=== PATIENT | male | born 1950 | race Native Hawaiian/Other Pacific Islander ===

== ENCOUNTER 2022-04-24 13:56 | Emergency (ER) | payer OTHER ==
[~2022-04-24] VITALS: Ht 160 cm; Wt 86.2 kg
[2022-04-24 14:38] LABS: PLATELET COUNT 135 K/uL (142-355)
[2022-04-24 14:48] LABS: POTASSIUM 3.7 mmol/L (3.6-5.2)
[2022-04-24 17:00] VITALS: BP 163/82; TEMP 98
== END 2022-04-24 17:00 | disposition home or self-care (01) ==
LOC: ED 13:56
PROVIDERS: Emergency Medicine Emergency Medical Services
DX: T67.8XXA Other effects of heat and light, initial encounter (principal); R42 Dizziness and giddiness; X30.XXXA Exposure to excessive natural heat, initial encounter; Y92.89 Other specified places as the place of occurrence of the external cause
CPT/HCPCS: 80053; 83735; 84484; 85027; 93005; 96360; 96361; 99284

== ENCOUNTER 2022-05-08 15:36 | Outpatient (CLI) | payer OTHER | END 2022-05-08 19:12 | disposition home or self-care (01) | LOC: CT 15:36 | PROVIDERS: ATTEND Nurse Practitioner Primary Care | DX: K43.2 Incisional hernia without obstruction or gangrene (principal) ==

== ENCOUNTER 2022-05-24 11:27 | Emergency (ER) | payer OTHER ==
[~2022-05-24] VITALS: Ht 160 cm; Wt 86.2 kg
[2022-05-24 11:30] VITALS: TEMP 98.8
[2022-05-24 12:16] LABS: PLATELET COUNT 137 K/uL (142-355)
[2022-05-24 12:24] LABS: POTASSIUM 3.9 mmol/L (3.6-5.2)
[2022-05-24 16:49] VITALS: BP 161/94
== END 2022-05-24 18:17 | disposition short-term general hospital (02) ==
LOC: ED 11:27
PROVIDERS: Emergency Medicine
DX: K42.0 Umbilical hernia with obstruction, without gangrene (principal); Z11.52 Encounter for screening for COVID-19
CPT/HCPCS: 36415; 80053; 81000; 85027; 87635; 96374; 96375; 99284; J1885; J2270; Q9963; U0003

== ENCOUNTER 2022-07-17 16:04 | Outpatient (CLI) | payer OTHER ==
[2022-07-17 16:28] LABS: PLATELET COUNT 161 K/uL (142-355)
== END 2022-07-17 23:59 | disposition home or self-care (01) ==
LOC: LABW 16:04
PROVIDERS: ATTEND Nurse Practitioner Family
DX: D64.89 Other specified anemias (principal); D47.3 Essential (hemorrhagic) thrombocythemia; R89.8 Other abnormal findings in specimens from other organs, systems and tissues
CPT/HCPCS: 36415; 83540; 83550; 83735; 85027; 85044

== ENCOUNTER 2022-09-14 23:35 | Emergency (ER) | payer OTHER ==
[~2022-09-14] VITALS: Ht 162.6 cm; Wt 83.9 kg
[2022-09-14 23:35] VITALS: TEMP 98.9
[2022-09-15 00:06] LABS: PLATELET COUNT 178 K/uL (142-355)
[2022-09-15 00:16] LABS: PARTIAL THROMBOPLASTIN TIME 29.9 SECONDS (24.5-33.6)
[2022-09-15 00:17] LABS: POTASSIUM 3.5 mmol/L (3.6-5.2)
[2022-09-15 05:20] VITALS: BP 129/90
== END 2022-09-15 05:24 | disposition home or self-care (01) ==
LOC: ED 23:35
PROVIDERS: Family Medicine
DX: R07.89 Other chest pain (principal)
CPT/HCPCS: 36415; 80053; 82550; 84484; 85027; 85610; 85730; 93005; 96365; 99284; J0696; J2270; J2405

== ENCOUNTER 2022-10-04 22:01 | Observation (INO) | payer OTHER ==
[~2022-10-04] VITALS: Ht 162.6 cm; Wt 86.6 kg
[2022-10-04 22:01] VITALS: BP 160/110; TEMP 98.1
[2022-10-04 22:52] LABS: PLATELET COUNT 170 K/uL (142-355)
[2022-10-04 22:56] LABS: POTASSIUM 2.9 mmol/L (3.6-5.2)
[2022-10-04 23:06] VITALS: BP 147/96
[2022-10-05 02:15] VITALS: BP 157/94; TEMP 97.6; Ht 162.6 cm; Wt 86.6 kg
[2022-10-05 03:39] VITALS: BP 152/89; TEMP 98
[2022-10-05 08:00] VITALS: BP 154/90; TEMP 98.5
[2022-10-05 12:00] VITALS: BP 133/87; TEMP 97.8
[2022-10-05] MEDS ORDERED: COZAAR25 MG PO (12:01)
[2022-10-05] MEDS ORDERED: GABA300C2 PO (12:06)
[2022-10-05] MEDS ORDERED: NITRO-DUR0.4 MG/HR TD (13:42)
[2022-10-05] MEDS ORDERED: METO25TA4 PO (13:44)
== END 2022-10-05 15:34 | disposition home or self-care (01) ==
LOC: ED 22:01 → MED/SURG 23:32
PROVIDERS: Internal Medicine; ADMIT Family Medicine; ATTEND Family Medicine
DX: R07.89 Other chest pain (principal); E87.6 Hypokalemia; I10 Essential (primary) hypertension; K21.9 Gastro-esophageal reflux disease without esophagitis; Z72.0 Tobacco use; I25.10 Atherosclerotic heart disease of native coronary artery without angina pectoris; J44.9 Chronic obstructive pulmonary disease, unspecified
CPT/HCPCS: 36415; 80048; 80053; 82550; 84443; 84484; 85027; 87635; 93005; 96372; 99220; 99284; G0378; J1650; U0003

== ENCOUNTER 2022-11-11 13:56 | Emergency (ER) | payer OTHER ==
[~2022-11-11] VITALS: Ht 162.6 cm; Wt 93.9 kg
[2022-11-11 13:56] VITALS: TEMP 98
[~2022-11-11 13:56] MED LIST: COZAAR25 MG PO; GABA300C2 PO; METO25TA4 PO; NITRO-DUR0.4 MG/HR TD
[2022-11-11 14:26] LABS: PLATELET COUNT 157 K/uL (142-355)
[2022-11-11 14:31] LABS: POTASSIUM 4.1 mmol/L (3.6-5.2)
[2022-11-11 14:56] LABS: PARTIAL THROMBOPLASTIN TIME 27.2 SECONDS (24.5-33.6)
[2022-11-11 16:00] VITALS: BP 172/97
== END 2022-11-11 17:00 | disposition short-term general hospital (02) ==
LOC: ED 13:56
PROVIDERS: Emergency Medicine Emergency Medical Services
DX: I21.4 Non-ST elevation (NSTEMI) myocardial infarction (principal); I63.9 Cerebral infarction, unspecified; I10 Essential (primary) hypertension; Z79.899 Other long term (current) drug therapy; Z51.81 Encounter for therapeutic drug level monitoring
CPT/HCPCS: 80053; 81002; 83735; 84484; 85027; 85610; 85730; 93005; 96372; 99284; J1650

== ENCOUNTER 2023-04-10 11:41 | Outpatient (CLI) | payer OTHER | END 2023-04-10 18:58 | disposition home or self-care (01) | LOC: RAD 11:41 | PROVIDERS: ATTEND Nurse Practitioner Family | DX: M79.672 Pain in left foot (principal); M25.551 Pain in right hip ==

== ENCOUNTER 2023-04-16 10:59 | Observation (INO) | payer OTHER ==
[~2023-04-16] VITALS: Ht 160 cm; Wt 88.3 kg
[2023-04-16 11:03] VITALS: BP 149/88; TEMP 98.8
[2023-04-16 11:22] LABS: PLATELET COUNT 154 K/uL (142-355)
[2023-04-16 11:42] LABS: POTASSIUM 3.6 mmol/L (3.6-5.2)
[2023-04-16 14:49] VITALS: BP 138/83; TEMP 97.6; Ht 160 cm; Wt 88.3 kg
[2023-04-16] MEDS ORDERED: [UNRECOGNIZED DRUG - OTHER] PO (15:01)
[2023-04-16] MEDS ORDERED: ASPIRIN PO (15:01)
[2023-04-16] MEDS ORDERED: NITR0.4S2 SL (15:03)
[2023-04-16] MEDS ORDERED: VRAYLAR1.5 MG PO (15:03)
[2023-04-16] MEDS ORDERED: POTA10CA3 PO (15:04)
[2023-04-16] MEDS ORDERED: LIPITOR80 MG PO (15:04)
[2023-04-16] MEDS ORDERED: PANTOPRAZOLE 40MG TA PO (15:04)
[2023-04-16] MEDS ORDERED: MOBIC7.5 M1 PO (15:05)
[2023-04-16] MEDS ORDERED: ESCI10TA PO (15:05)
[2023-04-16] MEDS ORDERED: METO25TA4 PO (15:05)
[2023-04-16] MEDS ORDERED: CLOP75TA2 PO (15:06)
[2023-04-16] MEDS ORDERED: LISI10TA11 PO (15:06)
[2023-04-16 16:00] VITALS: BP 143/84; TEMP 98.8
[2023-04-16 19:43] VITALS: BP 132/74; TEMP 98.2
[2023-04-16 23:46] VITALS: BP 110/80; TEMP 98.2
[2023-04-17 04:00] VITALS: BP 123/67; TEMP 97.5
[2023-04-17 04:01] LABS: PLATELET COUNT 134 K/uL (142-355)
[2023-04-17 04:12] LABS: POTASSIUM 3.4 mmol/L (3.6-5.2)
[2023-04-17 08:00] VITALS: BP 136/79; TEMP 98.2
[2023-04-17 12:06] VITALS: BP 130/79; TEMP 98
[2023-04-17 16:00] VITALS: BP 160/89; TEMP 98.5
[2023-04-17 20:00] VITALS: BP 156/88; TEMP 98.4
[2023-04-18] VITALS: BP 124/62; TEMP 98.2
[2023-04-18 04:00] VITALS: BP 121/70; TEMP 98.2
[2023-04-18 06:38] LABS: PLATELET COUNT 134 K/uL (142-355)
[2023-04-18 06:44] LABS: POTASSIUM 3.4 mmol/L (3.6-5.2)
[2023-04-18 08:10] VITALS: BP 141/83; TEMP 97.9
== END 2023-04-18 11:13 | disposition home or self-care (01) ==
LOC: ED 10:59 → MED/SURG 12:40
PROVIDERS: Family Medicine; ADMIT Internal Medicine Endocrinology, Diabetes & Metabolism; ATTEND Internal Medicine Endocrinology, Diabetes & Metabolism
DX: G45.8 Other transient cerebral ischemic attacks and related syndromes (principal); Z86.73 Personal history of transient ischemic attack (TIA), and cerebral infarction without residual deficits; I25.10 Atherosclerotic heart disease of native coronary artery without angina pectoris; I10 Essential (primary) hypertension; E78.49 Other hyperlipidemia; F41.8 Other specified anxiety disorders; G62.89 Other specified polyneuropathies; K21.9 Gastro-esophageal reflux disease without esophagitis; R20.0 Anesthesia of skin; R53.1 Weakness; R51.9 Headache, unspecified; F17.210 Nicotine dependence, cigarettes, uncomplicated
CPT/HCPCS: 80048; 80053; 80061; 82948; 84484; 85027; 93005; 96372; 96374; 96376; 99221; 99283; A9576; G0378; J1650; J2270

== ENCOUNTER 2023-05-16 10:12 | Observation (INO) | payer OTHER ==
[2023-05-16] VITALS (10 sets, daily range): BP systolic 127–180; BP diastolic 40–95; TEMP 97.5–97.9; Ht 162.6 cm; Wt 88.2 kg
[~2023-05-16] VITALS: Ht 162.6 cm; Wt 88.2 kg
[~2023-05-16 10:12] MED LIST changes: +ASPIRIN PO; +CLOP75TA2 PO; +ESCI10TA PO; +LIPITOR80 MG PO; +LISI10TA11 PO; +MOBIC7.5 M1 PO; +NITR0.4S2 SL; +PANTOPRAZOLE 40MG TA PO; +POTA10CA3 PO; +VRAYLAR1.5 MG PO; +[UNRECOGNIZED DRUG - OTHER] PO
[2023-05-16 10:40] LABS: PLATELET COUNT 121 K/uL (142-355)
[2023-05-16 11:00] LABS: POTASSIUM 3.6 mmol/L (3.6-5.2)
[2023-05-16 11:05] LABS: PARTIAL THROMBOPLASTIN TIME 31.6 SECONDS (23.9-36.7)
[2023-05-17] VITALS: BP 112/71; TEMP 98.1
[2023-05-17 04:00] VITALS: BP 141/73; TEMP 98.3
[2023-05-17 05:07] LABS: PLATELET COUNT 114 K/uL (142-355)
[2023-05-17 05:24] LABS: POTASSIUM 3.3 mmol/L (3.6-5.2)
[2023-05-17 08:00] VITALS: BP 116/70; TEMP 97.8
[2023-05-17 12:00] VITALS: BP 144/84; TEMP 97.9
== END 2023-05-17 13:49 | disposition home or self-care (01) ==
LOC: ED 10:12 → MED/SURG 13:17
PROVIDERS: Family Medicine; ADMIT Nurse Practitioner Family; ATTEND Internal Medicine Endocrinology, Diabetes & Metabolism
DX: G45.9 Transient cerebral ischemic attack, unspecified (principal); Z86.73 Personal history of transient ischemic attack (TIA), and cerebral infarction without residual deficits; I25.10 Atherosclerotic heart disease of native coronary artery without angina pectoris; I10 Essential (primary) hypertension; E78.49 Other hyperlipidemia; F41.8 Other specified anxiety disorders; G62.89 Other specified polyneuropathies; K21.9 Gastro-esophageal reflux disease without esophagitis; R20.0 Anesthesia of skin; R51.9 Headache, unspecified; Z72.0 Tobacco use
CPT/HCPCS: 36415; 80048; 80053; 80061; 84484; 85027; 85610; 85670; 85730; 93005; 96374; 96376; 99221; 99284; G0378; J2270